=== PATIENT | male | born 1995 | race Caucasian/White ===

== ENCOUNTER 2016-10-01 22:27 | Emergency (ER) | payer OTHER ==
[~2016-10-01] VITALS: Ht 172.7 cm; Wt 133.0 kg
[~2016-10-01 22:27] MED LIST: TRAM50TA2 PO
[2016-10-01 22:40] VITALS: Ht 172.7 cm; Wt 133.0 kg
--- NOTE | 2016-10-02 03:56 | ERD ---
ER Documentation Chief Complaint Date/Time DATE: 10/02/16 TIME: 03:49 Chief Complaint right earache x 1 day HPI Pleasant 21-year-old male patient presents to emergency department with a 1 day history of otalgia. Patient reports decreased hearing, pain described as stabbing, pain is 8/10 on pain scale radiating to neck. Patient reports that he is sensitive to pressure such as sneezing. Patient denies history of frequent ear infections, denies using Q-tips or injury. Patient reports seasonal allergy symptoms occasionally. Denies any water sports. Denies shortness of breath, cough, discharge or blood coming from the ear. ROS All systems reviewed and are negative except as per history of present illness. Medications Home Meds Active Scripts Ibuprofen* (Motrin*) 600 Mg Tab, 600 MG PO Q6H Y for PAIN AND OR ELEVATED TEMP, #30 TAB Prov:BENNY,HODAN 10/02/16 Ciprofloxacin Hcl/Dexameth (Ciprodex Otic Suspension) 7.5 Ml Drops.susp, 4 DROP RIGHT EAR BID for 7 Days, EA Prov:BENNY,HODAN 10/02/16 Amoxicillin/Potassium Clav (Amox-Clav 875-125 mg Tablet) 875-125 mg Tab, 1 TAB PO BID for 14 Days, #20 TAB Prov:BENNY,HODAN 10/02/16 Tramadol HCl (Tramadol HCl) 50 Mg Tablet, 50 MG PO Q4 Y for PAIN, #14 TAB Prov:ISABELLE MI PA-C 12/07/15 Allergies Allergies: Coded Allergies: No Known Drug Allergies (Verified Allergy, Unknown, 10/01/16) PMhx/Soc Medical and Surgical Hx: pt denies Surgical Hx History of Surgery: No Anesthesia Reaction: No Hx Neurological Disorder: No Hx Respiratory Disorders: Yes (asthma as a baby) Hx Cardiac Disorders: No Hx Psychiatric Problems: No Hx Miscellaneous Medical Probl: No Hx Alcohol Use: No Hx Substance Use: No Hx Tobacco Use: No Smoking Status: Never smoker Physical Exam Vitals Vital Signs Date Time Temp Pulse Resp B/P Pulse Ox O2 Delivery O2 Flow Rate FiO2 10/01/16 22:40 99.1 79 20 131/87 97 Vitals stable, triage notes reviewed Physical Exam Const: No acute distress Head: Atraumatic Eyes: Normal Conjunctiva ENT: Right auditory canal is narrowed, tympanic membrane is darkened centrally with bright erythema and yellow discharge oozing in auditory canal. Left tympanic membrane retracted, auditory canals clear, nasal mucosa is mildly edematous, moist, septum midline, pharynx pink, tongue midline, uvula rises and falls with pronation. Neck: Full range of motion. Neck is supple.~ No meningismus. Resp: Clear to auscultation bilaterally Cardio: Regular rate and rhythm, no murmurs Abd: Soft, non tender, non distended. Normal bowel sounds Skin: No petechiae or rashes Back: No midline or flank tenderness Ext: No cyanosis, or edema Neur: Awake and alert Psych: Normal Mood and Affect Results 24 hrs Current Medications Medications (Trade) Dose Ordered Sig/Nader Route PRN Reason Start Time Stop Time Status Last Admin Dose Admin Amoxicillin/ Clavulanate Potassium (Augmentin) 875 mg ONCE ONCE PO 10/02/16 04:00 10/02/16 04:01 DC 10/02/16 03:57 Acetaminophen/ Hydrocodone Bitart ([place] (5/325)) 1 tab ONCE ONCE PO 10/02/16 04:00 10/02/16 04:01 DC 10/02/16 03:58 Dexamethasone (Decadron) 10 mg ONCE ONCE PO 10/02/16 04:00 10/02/16 04:01 DC Procedures/MDM This 21-year-old male patient presenting to emergency department for right- sided R otalgia 24 hours. Physical exam supports and otitis media and externa. Mastoiditis is considered but not likely at this time. Patient's tympanic membrane is visible, auditory canal is narrowed, with is not needed nurse practitioner decides to treat with Augmentin, Ciprodex, and Decadron in the emergency room, treatment will continue at home with antibiotics and otics. Patient is not presenting with any coryza, other upper respiratory infection not suspected. Feel patient is an excellent candidate for outpatient therapy and to follow-up with primary care physician. I feel the patient is stable for discharge at this time. I have discussed results, examination findings, the treatment plan with the patient and family present prior to discharge. Indications for emergent reevaluation, side effects of medication were also discussed. All questions were answered. Patient verbalizes understanding and agrees with plan of care. Departure Diagnosis: Primary Impression: Otitis media Otitis media type: suppurative Laterality: right Chronicity: acute Recurrence: not specified as recurrent Spontaneous tympanic membrane rupture: without spontaneous rupture Qualified Code: H66.001 - Acute suppurative otitis media of right ear without spontaneous rupture of tympanic membrane, recurrence not specified Additional Impression: Otitis externa Otitis externa type: unspecified type Laterality: right Chronicity: acute Qualified Code: H60.501 - Acute otitis externa of right ear, unspecified type Condition: Good Patient Instructions: External Ear Infection (Adult), Otitis Media, Abx Tx ( Adult) Additional Instructions: Thank you for for coming to [facility] for your care today. Please ask your nurse or provider if you have questions about your care today and do not leave until all your questions have been answered. Please use any medications given as directed and follow-up with your doctor (or the doctor you were referred to) in the next 2-3 days. If you do not have a primary care doctor you may follow up at the [facility] (listed below). You may also use motrin and tylenol as needed for fever and/or pain unless instructed otherwise by your provider or nurse. Indications for more urgent follow-up have been discussed, but you may return to the Emergency Department at ANY time for any worrisome or worsening symptoms. If you have abdominal pain, please know that no test or exam you received is perfect and you should follow up within 8 hours for continued pain. If you had any imaging studies today, such as an X-Ray or CT Scan, these studies will be reviewed later by a radiologist. You will be called if there are important findings that were not identified today, so make sure the contact information you provided at registration is correct. If you received any narcotic pain control medicine today, such as Vicodin, Morphine or Dilaudid, your coordination and judgment may be affected for a number of hours. Please do not drive or operate heavy machinery, and you may want someone to assist you at home. If you were given a prescription for narcotic medication, be aware that it is very addictive- use sparingly and only if necessary. HODAN ZAPATA Oct 02, 2016 03:55
[2016-10-02] MEDS ORDERED: AMOX1TAB10 PO (03:58)
[2016-10-02] MEDS ORDERED: CIPR7.5D4 RIGHT EAR (03:59)
[2016-10-02] MEDS ORDERED: DEXAMETHASONE 4 MG TAB PO ONE (04:00)
[2016-10-02] MEDS ORDERED: IBUP-1542 PO (04:00)
[2016-10-02] MEDS ORDERED: AMOXICILLIN/CLAV 875 MG TAB PO ONE (04:00)
[2016-10-02] MEDS ORDERED: HYDROCODONE/APAP (5/325) TAB PO ONE (04:00)
[2016-10-02 04:28] VITALS: BP 169/98; PULSE 96; RESP 17; TEMP 97.6
== END 2016-10-02 04:28 | disposition home or self-care (01) ==
LOC: FTE 22:27
DX: H66.001 Acute suppurative otitis media without spontaneous rupture of ear drum, right ear (principal); H60.501 Unspecified acute noninfective otitis externa, right ear; J45.909 Unspecified asthma, uncomplicated
CPT/HCPCS: Z7502; Z7610; 99283

== ENCOUNTER 2016-10-31 09:34 | Emergency (ER) | payer OTHER ==
[~2016-10-31] VITALS: Ht 172.7 cm; Wt 137.0 kg
[~2016-10-31 09:34] MED LIST changes: +AMOX1TAB10 PO; +CIPR7.5D4 RIGHT EAR; +IBUP-1542 PO
[2016-10-31 09:38] VITALS: Ht 172.7 cm; Wt 137.0 kg
[2016-10-31] MEDS ORDERED: KETOROLAC 30 MG INJ IM STA (10:17)
[2016-10-31 10:25] LABS: URINE BLOOD (Dip) POC Negative (NEGATIVE)
--- NOTE | 2016-10-31 11:51 | RADRPT ---
PROCEDURE: CT of the abdomen and pelvis without contrast CLINICAL INDICATION: Left lower quadrant pain. TECHNIQUE: Spiral CT images through the abdomen and pelvis without the use of contrast. The admin istered radiation dose is CTDI 23.8 and DLP 1624.45. One or more of the following dose reduction te chniques were used: automated exposure control, adjustment of the mA and/or kV according to patient size, or use of iterative reconstruction technique. COMPARISON: None FINDINGS: Lack of oral and intravenous contrast somewhat limits evaluation. Slight dependent atelectasis of the lung bases is seen. No pleural effusion is seen. There is diffuse hepatic steatosis. The spleen, adrenals, kidneys, and pancreas are unremarkable in appearance.. . The tip of the appendix is top normal in diameter at 7 mm. No appendicolith is se en. Some dense secretions are present within the appendix. There is no definite evidence for bowel obstruction, free air, or abscess. Few colonic diverticula are seen. There is no evidence for div erticulitis. Small fat-containing umbilical and left inguinal hernias. No adenopathy or ascites is seen. The bladder and prostate are unremarkable in appearance. There is a subtle area of fat strand ing in the left lower quadrant immediately beneath the left anterior abdominal wall. This is best s een on axial images 125-137. A portion of the stranding is close to the distal descending colon but no diverticulum as adjacent. This could represent a small omental infarct or possibly epiploic [place] endagitis. There is mild degenerative change of the spine. IMPRESSION: Subtle fat stranding in the left lower quadrant without definite bowel inflammatory change. Questio n omental infarct or possibly epiploic appendagitis. Top normal diameter of the distal appendix without definite inflammatory change. Hepatic steatosis. Small fat-containing umbilical and left inguinal hernias. RPTAT: [facility] Physician Meenakshi Date Time Electronically viewed and signed by Physician Meenakshi on 10/31/2016 11:51 LE/
[2016-10-31] MEDS ORDERED: HYDR-902 PO (12:06)
[2016-10-31] MEDS ORDERED: ONDA4TAB14 PO (12:06)
--- NOTE | 2016-10-31 13:27 | ERD ---
ER Documentation Chief Complaint Date/Time DATE: 10/31/16 TIME: 13:26 Chief Complaint STABBING LLQ PAIN X 2 DAYS GOT WORSE TODAY HPI Patient is a 21-year-old male with no medical problems who presents with left lower quadrant abdominal pain. The symptoms started 2 days ago. The pain comes and goes. The patient said that last night his pain was a 10 out of 10. He could not get comfortable. It is a stabbing type pain. He tried Motrin last night. Upon review of old medical records this the patient's fourth visit to the ER since November 2015. The patient does not currently have a primary doctor. ROS All systems reviewed and are negative except as per history of present illness. Medications Home Meds Active Scripts Ondansetron (Ondansetron Odt) 4 Mg Tab.rapdis, 4 MG PO Q6H Y for NAUSEA AND/OR VOMITING, #10 TAB Prov:HAILEY RICHARDS MD 10/31/16 Hydrocodone/Acetaminophen ([place] 10-325 Tablet) 1 Each Tablet, 1 TAB PO Q6H Y for PAIN, #7 TAB Prov:HAILEY RICHARDS MD 10/31/16 Ibuprofen* (Motrin*) 600 Mg Tab, 600 MG PO Q6H Y for PAIN AND OR ELEVATED TEMP, #30 TAB Prov:BENNY,HODAN 10/02/16 Ciprofloxacin Hcl/Dexameth (Ciprodex Otic Suspension) 7.5 Ml Drops.susp, 4 DROP RIGHT EAR BID for 7 Days, EA Prov:BENNY,HODAN 10/02/16 Amoxicillin/Potassium Clav (Amox-Clav 875-125 mg Tablet) 875-125 mg Tab, 1 TAB PO BID for 14 Days, #20 TAB Prov:BENNY,HODAN 10/02/16 Tramadol HCl (Tramadol HCl) 50 Mg Tablet, 50 MG PO Q4 Y for PAIN, #14 TAB Prov:ISABELLE MI PA-C 12/07/15 Allergies Allergies: Coded Allergies: No Known Drug Allergies (Verified Allergy, Unknown, 10/01/16) PMhx/Soc Medical and Surgical Hx: pt denies Surgical Hx History of Surgery: No Anesthesia Reaction: No Hx Neurological Disorder: No Hx Respiratory Disorders: Yes (asthma as a baby) Hx Cardiac Disorders: No Hx Psychiatric Problems: No Hx Miscellaneous Medical Probl: No Hx Alcohol Use: Yes (OCCASIONAL) Hx Substance Use: No Hx Tobacco Use: No Smoking Status: Never smoker FmHx Family History: diabetes Physical Exam Vitals Vital Signs Date Time Temp Pulse Resp B/P Pulse Ox O2 Delivery O2 Flow Rate FiO2 10/31/16 09:38 98.2 89 19 144/91 97 Physical Exam Const: Mild distress secondary to pain Head: Atraumatic Eyes: Normal Conjunctiva ENT: Normal External Ears, Nose and Mouth. Neck: Full range of motion..~ No meningismus. Resp: Clear to auscultation bilaterally Cardio: Regular rate and rhythm, no murmurs Abd: Soft, left lower quadrant pain without rebound or guarding, no right lower quadrant tenderness to palpation Skin: No petechiae or rashes Back: No midline or flank tenderness Ext: No cyanosis, or edema Neur: Awake and alert Psych: Normal Mood and Affect Results 24 hrs Laboratory Tests Test 10/31/16 10:25 Bedside Urine pH (LAB) 6.0 Bedside Urine Protein (LAB) Negative Bedside Urine Glucose (UA) Negative Bedside Urine Ketones (LAB) Negative Bedside Urine Blood Negative Bedside Urine Nitrite (LAB) Negative Bedside Urine Leukocyte Esterase (L Negative Current Medications Medications (Trade) Dose Ordered Sig/Nader Route PRN Reason Start Time Stop Time Status Last Admin Dose Admin Ketorolac Tromethamine (Toradol) 30 mg ONCE STAT IM 10/31/16 10:17 10/31/16 10:19 DC 10/31/16 10:25 Procedures/MDM PROCEDURE: CT of the abdomen and pelvis without contrast CLINICAL INDICATION: Left lower quadrant pain. TECHNIQUE: Spiral CT images through the abdomen and pelvis without the use of contrast. The administered radiation dose is CTDI 23.8 and DLP 1624.45. One or more of the following dose reduction techniques were used: automated exposure control, adjustment of the mA and/or kV according to patient size, or use of iterative reconstruction technique. COMPARISON: None FINDINGS: Lack of oral and intravenous contrast somewhat limits evaluation. Slight dependent atelectasis of the lung bases is seen. No pleural effusion is seen. There is diffuse hepatic steatosis. The spleen, adrenals, kidneys, and pancreas are unremarkable in appearance.. . The tip of the appendix is top normal in diameter at 7 mm. No appendicolith is seen. Some dense secretions are present within the appendix. There is no definite evidence for bowel obstruction, free air, or abscess. Few colonic diverticula are seen. There is no evidence for diverticulitis. Small fat-containing umbilical and left inguinal hernias. No adenopathy or ascites is seen. The bladder and prostate are unremarkable in appearance. There is a subtle area of fat stranding in the left lower quadrant immediately beneath the left anterior abdominal wall. This is best seen on axial images 125-137. A portion of the stranding is close to the distal descending colon but no diverticulum as adjacent. This could represent a small omental infarct or possibly epiploic appendagitis. There is mild degenerative change of the spine. IMPRESSION: Subtle fat stranding in the left lower quadrant without definite bowel inflammatory change. Question omental infarct or possibly epiploic appendagitis. Top normal diameter of the distal appendix without definite inflammatory change. Hepatic steatosis. Small fat-containing umbilical and left inguinal hernias. RPTAT: [facility] Physician Meenaskhi Date Time Electronically viewed and signed by Stephanie Vazquez Physician on 10/31/2016 11 :51 Patient is a 21-year-old male presents with left lower quadrant abdominal pain. CT scan shows possible omental infarct or epiploic appendagitis. Urine dip shows no signs of infection at this time. I doubt appendicitis, cholecystitis, pink otitis, or bowel obstruction. This point I doubt diverticulitis. There is no sign of testicular torsion, cystitis, or polynephritis. I believe outpatient management is appropriate. The patient will need close follow-up however with a primary doctor within 24 hours for reevaluation. I will give him information for the local clinics as he does not currently have a primary doctor. Departure Diagnosis: Primary Impression: Abdominal pain Abdominal location: unspecified location Qualified Code: R10.9 - Abdominal pain, unspecified location Condition: Fair Patient Instructions: Abdominal Pain Referrals: [facility] YOU HAVE RECEIVED A MEDICAL SCREENING EXAM AND THE RESULTS INDICATE THAT YOU DO NOT HAVE A CONDITION THAT REQUIRES URGENT TREATMENT IN THE EMERGENCY DEPARTMENT. FURTHER EVALUATION AND TREATMENT OF YOUR CONDITION CAN WAIT UNTIL YOU ARE SEEN IN YOUR DOCTORS OFFICE WITHIN THE NEXT 1-2 DAYS. IT IS YOUR RESPONSIBILITY TO MAKE AN APPOINTMENT FOR FOLOW-UP CARE. IF YOU HAVE A PRIMARY DOCTOR --you should call your primary doctor and schedule an appointment IF YOU DO NOT HAVE A PRIMARY DOCTOR YOU CAN CALL OUR PHYSICIAN REFERRAL HOTLINE AT IF YOU CAN NOT AFFORD TO SEE A PHYSICIAN YOU CAN CHOSE FROM THE FOLLOWING [facility] [address] [facility] [address] [facility] [address] [facility] [address] [facility] [address] [facility] [facility] [address] Additional Instructions: FOLLOW UP WITH YOUR PRIMARY CARE PHYSICIAN TOMORROW.Return to this facility if you are not improving as expected. HAILEY RICHARDS MD Oct 31, 2016 13:27
== END 2016-10-31 12:15 | disposition home or self-care (01) ==
LOC: FTE 09:34
DX: R10.32 Left lower quadrant pain (principal); J45.909 Unspecified asthma, uncomplicated
CPT/HCPCS: 74176; 81003; J1885; 96372